=== PATIENT | male | born 1955 | race Caucasian/White ===

== ENCOUNTER 2017-05-16 09:14 | Inpatient (IN) | payer OTHER ==
[~2017-05-16] VITALS: Ht 180.3 cm; Wt 83.3 kg
[2017-05-16] MEDS ORDERED: PROPOFOL 1000 MG/ISO-OSM 100 ML IV ONE (09:18)
[2017-05-16] MEDS ORDERED: LEVO75 PO (09:28)
[2017-05-16] MEDS ORDERED: SODIUM CHLORIDE 0.9% 1,000 ML IV ONE (09:30)
[2017-05-16 09:39] LABS: BASOPHILS # (AUTO) 0.02 K/uL (0.00-0.20); BASOPHILS % (AUTO) 0.2 % (0.0-2.0); EOSINOPHILS # (AUTO) 0.01 K/uL (0.00-0.70); EOSINOPHILS % (AUTO) 0.08 % (1.0-6.0); HEMATOCRIT 47.9 % (41-53); HEMOGLOBIN 15.1 g/dL (13.5-17.5); LYMPHOCYTES % (AUTO) 22.5 % (22.0-44.0); MEAN CORPUSCULAR HEMOGLOBIN 30.2 pg (26.0-34.0); MEAN CORPUSCULAR HGB CONC 31.5 G/dL (31.0-37.0); MEAN CORPUSCULAR VOLUME 96 fL (80-100); MONOCYTES # (AUTO) 0.3 K/uL (0.1-1.0); MONOCYTES % (AUTO) 3.3 % (2.0-9.0); NEUTROPHILS # (AUTO) 6.5 K/uL (1.8-7.7); NEUTROPHILS % (AUTO) 73.9 % (40.0-70.0); PLATELET COUNT (AUTO) 342 K/uL (150-450); RED BLOOD CELL COUNT(AUTO) 5.01 MIL/uL (4.50-5.90); WHITE BLOOD COUNT (AUTO) 8.9 K/uL (4.5-11.0)
[2017-05-16 09:48] LABS: ANION GAP 13 mmol/L (8-16); CALCIUM, TOTAL 9.1 mg/dL (8.8-10.5); CARBON DIOXIDE 28 mmol/L (22-29); CHLORIDE 101 mmol/L (98-107); CREATININE 0.88 mg/dL (0.60-1.30); GLOMERULAR FILTR. RATE CALC > 60 mL/min (>60); POTASSIUM 4.2 mmol/L (3.5-5.1); SODIUM SERUM 142 mmol/L (136-145); UREA NITROGEN, BLOOD 19 mg/dL (7-18)
[2017-05-16] MEDS: PROPOFOL 1000 MG/ISO-OSM 100 ML IV PRN (09:58)
[2017-05-16] MEDS ORDERED: PHENYLEPHRINE 200 MG/D5%-WATER 250 ML IV PRN (09:58)
[2017-05-16 10:04] LABS: ALANINE AMINOTRANSFERASE 464 U/L (12-78); ALBUMIN 2.1 g/dL (3.4-5.0); ASPARTATE AMINOTRANSFERASE 645 U/L (15-37); BILIRUBIN,TOTAL 1.1 mg/dL (0.1-1.0); TOTAL PROTEIN, SERUM 8.4 g/dL (6.4-8.2)
[2017-05-16 10:07] LABS: B-TYPE NATRIURETIC PEPTIDE 245 pg/mL (0-100)
[2017-05-16 10:27] LABS: CREATINE KINASE, TOTAL 8843 U/L (39-308)
[2017-05-16] MEDS ORDERED: BENZ-51 PO (10:27)
[2017-05-16] MEDS ORDERED: SENN-175 PO (10:27)
[2017-05-16] MEDS ORDERED: ASPI81 PO (10:27)
[2017-05-16] MEDS ORDERED: ACET-784 PO (10:27)
[2017-05-16 10:29] LABS: ABG BASE EXCESS -2.1 mmol/L (-2.0-3.0); ABG HCO3 22.6 mmol/L (22.0-26.0); ABG OXYHEMOGLOBIN 96.7 % (94.0-100.0); ABG PCO2 47 mmHg (35-45); ABG PH 7.327 (7.35-7.450); ALLEN TEST, BLOOD GAS Positive
[2017-05-16] MEDS ORDERED: 0.9% SODIUM CHLORIDE 10 ML SYRINGE IVP PRN (11:15)
[2017-05-16] MEDS ORDERED: ACETAMINOPHEN 325 MG TABLET PO PRN (11:15)
[2017-05-16 11:29] LABS: LACTIC ACID 5.3 mmol/L (0.4-2.0)
[2017-05-16 11:37] LABS: CREATINE KINASE MB 827.6 ng/mL (0-5)
[2017-05-16] MEDS ORDERED: AZITHROMYCIN 500 MG/NS 250 ML IV ONE (11:45)
[2017-05-16] MEDS ORDERED: CefTRIAXone 1 GM/DEXTROSE 50 ML IV ONE (11:45)
[2017-05-16] MEDS ORDERED: SODIUM CHLORIDE 0.9% 2,000 ML IV ONE (11:45)
[2017-05-16 12:51] LABS: REFLEX LACTIC ACID? YES YES
[2017-05-16] MEDS: DEXTROSE 5%-0.45% SODIUM CHL 1,000 ML IV SCH (15:11)
[2017-05-16] MEDS ORDERED: ACETAMINOPHEN 1000 MG/ISO-OSM 100 ML IV ONE (16:15)
[2017-05-16 16:45] LABS: APPEARANCE,URINE TURBID (CLEAR); GLUCOSE, URINE (UA) 100 mg/dL (NEGATIVE); KETONES,URINE TRACE mg/dL (NEGATIVE); LEUKOCYTE ESTERASE ,URINE SMALL (NEGATIVE); OCCULT BLOOD,URINE LARGE (NEGATIVE); PH,URINE 5.5 (5.0-8.0); PROTEIN,URINE SEE CONFIRM (NEGATIVE)
[2017-05-16 16:54] LABS: ADD UA MICROSCOPIC YES
[2017-05-16 16:55] LABS: SULFOSALICYLIC ACID,URINE 3+ (Negative)
[2017-05-16 16:59] LABS: HYALINE CASTS, URINE 0-2 /LPF (None Seen); SQUAMOUS EPITHELIAL CELL,UR Few /LPF (None Seen)
[2017-05-16 17:00] LABS: URINALYSIS COMMENT Moderate Sperm seen.
[2017-05-16] MEDS ORDERED: SODIUM CHLORIDE 0.9% 250 ML IV ONE (19:30)
[2017-05-16 19:32] LABS: INR 1.1 (0.9-1.1); PROTHROMBIN TIME 11.2 SEC (9.4-11.6)
[2017-05-16 20:40] VITALS: BP 122/90
[2017-05-16 22:30] LABS: ALANINE AMINOTRANSFERASE 389 U/L (12-78); ANION GAP 10 mmol/L (8-16); ASPARTATE AMINOTRANSFERASE 423 U/L (15-37); BILIRUBIN,TOTAL 0.8 mg/dL (0.1-1.0); CALCIUM, TOTAL 8.1 mg/dL (8.8-10.5); CARBON DIOXIDE 27 mmol/L (22-29); CHLORIDE 104 mmol/L (98-107); CREATININE 1.14 mg/dL (0.60-1.30); GLOMERULAR FILTR. RATE CALC > 60 mL/min (>60); SODIUM SERUM 141 mmol/L (136-145); TOTAL PROTEIN, SERUM 7.4 g/dL (6.4-8.2); UREA NITROGEN, BLOOD 28 mg/dL (7-18)
[2017-05-16] MEDS ORDERED: INFLUENZA VIRUS VACCINE QVS 2017-18 (3YR+)/PF 60 MCG/0.5 ML SYRINGE IM ONE (22:45)
[2017-05-16 22:47] LABS: ALLEN TEST, BLOOD GAS POSITIVE; TEMPERATURE, FAHRENHEIT, BG 95.7 FAHREN (96.0-98.6)
[2017-05-16 22:48] LABS: ABG BASE EXCESS -1.6 mmol/L (-2.0-3.0); ABG HCO3 22.9 mmol/L (22.0-26.0); ABG OXYHEMOGLOBIN 99.2 % (94.0-100.0); ABG PCO2 44 mmHg (35-45)
[2017-05-16 22:49] LABS: ABG A-A DIFF O2 323.1 mmHg (10-20.0)
[2017-05-16 23:15] LABS: ALBUMIN 1.8 g/dL (3.4-5.0)
[2017-05-17] VITALS (23 sets, daily range): BP systolic 49–223; BP diastolic 30–174
[2017-05-17] MEDS: PROPOFOL 1000 MG/ISO-OSM 100 ML IV PRN ×2 (04:26→19:43)
[2017-05-17] MEDS: DEXTROSE 5%-0.45% SODIUM CHL 1,000 ML IV SCH ×2 (04:27→19:45)
[2017-05-17 04:32] LABS: ABG PCO2 44 mmHg (35-45); ABG PH 7.378 (7.35-7.450); TEMPERATURE, FAHRENHEIT, BG 90.5 FAHREN (96.0-98.6)
[2017-05-17 04:33] LABS: ABG A-A DIFF O2 153.3 mmHg (10-20.0); ABG BASE EXCESS -0.3 mmol/L (-2.0-3.0); ABG HCO3 24.3 mmol/L (22.0-26.0); ABG OXYHEMOGLOBIN 95.3 % (94.0-100.0)
[2017-05-17 05:30] LABS: BASOPHILS # (AUTO) 0.01 K/uL (0.00-0.20); BASOPHILS % (AUTO) 0.1 % (0.0-2.0); EOSINOPHILS % (AUTO) 0.06 % (1.0-6.0); HEMATOCRIT 38.2 % (41-53); HEMOGLOBIN 12.4 g/dL (13.5-17.5); LYMPHOCYTES # (AUTO) 0.7 K/uL (1.0-4.8); LYMPHOCYTES % (AUTO) 9.3 % (22.0-44.0); MEAN CORPUSCULAR HEMOGLOBIN 30.4 pg (26.0-34.0); MEAN CORPUSCULAR HGB CONC 32.4 G/dL (31.0-37.0); MEAN CORPUSCULAR VOLUME 94 fL (80-100); MONOCYTES # (AUTO) 0.3 K/uL (0.1-1.0); MONOCYTES % (AUTO) 3.7 % (2.0-9.0); NEUTROPHILS # (AUTO) 6.3 K/uL (1.8-7.7); PLATELET COUNT (AUTO) 298 K/uL (150-450); RED BLOOD CELL COUNT(AUTO) 4.07 MIL/uL (4.50-5.90); RED CELL DISTRIBUTION WIDTH 14.5 % (11.5-14.5); WHITE BLOOD COUNT (AUTO) 7.3 K/uL (4.5-11.0)
[2017-05-17 05:34] LABS: NEUTROPHILS % (AUTO) 86.8 % (40.0-70.0)
[2017-05-17 05:54] LABS: ALBUMIN 1.6 g/dL (3.4-5.0); BILIRUBIN,TOTAL 0.8 mg/dL (0.1-1.0); CALCIUM, TOTAL 7.7 mg/dL (8.8-10.5); CREATININE 1.23 mg/dL (0.60-1.30); MAGNESIUM 1.7 mg/dL (1.80-2.40); PHOSPHORUS 4.3 mg/dL (2.5-4.9); POTASSIUM 3.7 mmol/L (3.5-5.1); THYROID STIMULATING HORMONE 69.7 uIU/mL (0.36-3.74); TOTAL PROTEIN, SERUM 6.1 g/dL (6.4-8.2)
[2017-05-17] MEDS ORDERED: FUROSEMIDE 20 MG/2 ML VIAL IVP ONE (08:30)
[2017-05-17 10:28] LABS: ALBUMIN 1.6 g/dL (3.4-5.0); BILIRUBIN,TOTAL 0.7 mg/dL (0.1-1.0); CALCIUM, TOTAL 7.6 mg/dL (8.8-10.5); CREATININE 1.27 mg/dL (0.60-1.30); MAGNESIUM 1.8 mg/dL (1.80-2.40); POTASSIUM 3.5 mmol/L (3.5-5.1)
[2017-05-17] MEDS: LEVOTHYROXINE SODIUM 75 MCG TABLET PO SCH (10:38)
[2017-05-17 13:23] LABS: BASOPHILS % (AUTO) 0.4 % (0.0-2.0); EOSINOPHILS % (AUTO) 0.3 % (1.0-6.0); HEMATOCRIT 39.3 % (41-53); HEMOGLOBIN 12.9 g/dL (13.5-17.5); LYMPHOCYTES # (AUTO) 3.2 K/uL (1.0-4.8); MEAN CORPUSCULAR HEMOGLOBIN 30.5 pg (26.0-34.0); MEAN CORPUSCULAR HGB CONC 32.7 G/dL (31.0-37.0); MEAN CORPUSCULAR VOLUME 93 fL (80-100); MONOCYTES # (AUTO) 0.6 K/uL (0.1-1.0); MONOCYTES % (AUTO) 4.7 % (2.0-9.0); NEUTROPHILS # (AUTO) 7.9 K/uL (1.8-7.7); NEUTROPHILS % (AUTO) 67.6 % (40.0-70.0); PLATELET COUNT (AUTO) 377 K/uL (150-450); RED BLOOD CELL COUNT(AUTO) 4.21 MIL/uL (4.50-5.90); RED CELL DISTRIBUTION WIDTH 14.7 % (11.5-14.5); WHITE BLOOD COUNT (AUTO) 11.7 K/uL (4.5-11.0)
[2017-05-17 13:33] LABS: ANION GAP 9 mmol/L (8-16); CALCIUM, TOTAL 7.7 mg/dL (8.8-10.5); CARBON DIOXIDE 29 mmol/L (22-29); CHLORIDE 105 mmol/L (98-107); CREATININE 1.38 mg/dL (0.60-1.30); GLOMERULAR FILTR. RATE CALC 52 mL/min (>60); POTASSIUM 3.6 mmol/L (3.5-5.1); SODIUM SERUM 143 mmol/L (136-145); UREA NITROGEN, BLOOD 36 mg/dL (7-18)
[2017-05-17 13:33] LABS: ABG A-A DIFF O2 567.9 mmHg (10-20.0); ABG BASE EXCESS -3.2 mmol/L (-2.0-3.0); ABG HCO3 20.6 mmol/L (22.0-26.0); ABG OXYHEMOGLOBIN 95.8 % (94.0-100.0); ABG PCO2 61 mmHg (35-45); ABG PH 7.216 (7.35-7.450); TEMPERATURE, FAHRENHEIT, BG 93.4 FAHREN (96.0-98.6)
[2017-05-17 13:37] LABS: ALANINE AMINOTRANSFERASE 341 U/L (12-78); ALBUMIN 1.6 g/dL (3.4-5.0); ASPARTATE AMINOTRANSFERASE 397 U/L (15-37); BILIRUBIN,TOTAL 0.7 mg/dL (0.1-1.0); PHOSPHORUS 4.4 mg/dL (2.5-4.9); TOTAL PROTEIN, SERUM 6.3 g/dL (6.4-8.2)
[2017-05-17 14:12] LABS: LACTIC ACID 3.3 mmol/L (0.4-2.0)
[2017-05-17 15:13] LABS: TEMPERATURE, FAHRENHEIT, BG 92.4 FAHREN (96.0-98.6)
[2017-05-17 15:14] LABS: ABG BASE EXCESS -5.6 mmol/L (-2.0-3.0); ABG HCO3 19.6 mmol/L (22.0-26.0); ABG OXYHEMOGLOBIN 98.4 % (94.0-100.0); ABG PCO2 47 mmHg (35-45)
[2017-05-17 15:20] LABS: REFLEX LACTIC ACID? YES YES
[2017-05-17] MEDS ORDERED: SODIUM CHLORIDE 0.9% 250 ML IV ONE (15:40)
[2017-05-17] MEDS: PIPERACILLIN/TAZO 3.375 GM/D5W 50 ML IV SCH ×2 (15:44→19:49)
[2017-05-17 16:43] LABS: BILIRUBIN,TOTAL 0.8 mg/dL (0.1-1.0); CALCIUM, TOTAL 8.1 mg/dL (8.8-10.5); CREATININE 1.39 mg/dL (0.60-1.30); PHOSPHORUS 5.3 mg/dL (2.5-4.9); TOTAL PROTEIN, SERUM 7.5 g/dL (6.4-8.2)
[2017-05-17 17:36] LABS: ALBUMIN 1.8 g/dL (3.4-5.0)
[2017-05-17] MEDS ORDERED: DOPamine HCL 400 MG/D5%-WATER 250 ML IV ONE (19:02)
[2017-05-17] MEDS ORDERED: DOPamine HCL 400 MG/D5%-WATER 250 ML IV PRN (20:03)
[2017-05-17 22:21] LABS: ABG PH 7.367 (7.35-7.450); ALLEN TEST, BLOOD GAS Positive; TEMPERATURE, FAHRENHEIT, BG 97.5 FAHREN (96.0-98.6)
[2017-05-17 22:22] LABS: ABG BASE EXCESS 0.4 mmol/L (-2.0-3.0); ABG HCO3 24.5 mmol/L (22.0-26.0); ABG PCO2 46 mmHg (35-45)
[2017-05-17 22:45] LABS: ALBUMIN 1.7 g/dL (3.4-5.0); BILIRUBIN,TOTAL 0.6 mg/dL (0.1-1.0); CREATININE 1.41 mg/dL (0.60-1.30); MAGNESIUM 1.8 mg/dL (1.80-2.40); PHOSPHORUS 5.5 mg/dL (2.5-4.9); POTASSIUM 4.4 mmol/L (3.5-5.1); TOTAL PROTEIN, SERUM 7.1 g/dL (6.4-8.2)
[2017-05-18] VITALS (7 sets, daily range): BP systolic 68–121; BP diastolic 48–77
[2017-05-18] MEDS: PIPERACILLIN/TAZO 3.375 GM/D5W 50 ML IV SCH ×4 (00:10→18:47)
[2017-05-18] MEDS: PROPOFOL 1000 MG/ISO-OSM 100 ML IV PRN ×4 (03:35→21:43)
[2017-05-18] MEDS: LEVOTHYROXINE SODIUM 75 MCG TABLET PO SCH (06:17)
[2017-05-18 06:24] LABS: PROTHROMBIN TIME 10.6 SEC (9.4-11.6)
[2017-05-18 06:42] LABS: EOSINOPHILS % (AUTO) 0.1 % (1.0-6.0); HEMATOCRIT 37.9 % (41-53); HEMOGLOBIN 12.3 g/dL (13.5-17.5); LYMPHOCYTES # (AUTO) 0.7 K/uL (1.0-4.8); LYMPHOCYTES % (AUTO) 7.9 % (22.0-44.0); MEAN CORPUSCULAR HEMOGLOBIN 30.4 pg (26.0-34.0); MEAN CORPUSCULAR HGB CONC 32.6 G/dL (31.0-37.0); MEAN CORPUSCULAR VOLUME 93 fL (80-100); MONOCYTES # (AUTO) 0.5 K/uL (0.1-1.0); MONOCYTES % (AUTO) 5.5 % (2.0-9.0); NEUTROPHILS # (AUTO) 8.1 K/uL (1.8-7.7); PLATELET COUNT (AUTO) 355 K/uL (150-450); RED BLOOD CELL COUNT(AUTO) 4.06 MIL/uL (4.50-5.90); RED CELL DISTRIBUTION WIDTH 14.7 % (11.5-14.5); WHITE BLOOD COUNT (AUTO) 9.4 K/uL (4.5-11.0)
[2017-05-18 06:43] LABS: NEUTROPHILS % (AUTO) 86.5 % (40.0-70.0)
[2017-05-18 06:44] LABS: ALBUMIN 1.6 g/dL (3.4-5.0); BILIRUBIN,TOTAL 0.6 mg/dL (0.1-1.0); CALCIUM, TOTAL 7.6 mg/dL (8.8-10.5); CREATININE 1.49 mg/dL (0.60-1.30); MAGNESIUM 1.6 mg/dL (1.80-2.40); PHOSPHORUS 4.5 mg/dL (2.5-4.9); POTASSIUM 3.7 mmol/L (3.5-5.1); TOTAL PROTEIN, SERUM 6.5 g/dL (6.4-8.2)
[2017-05-18] MEDS: DEXTROSE 5%-0.45% SODIUM CHL 1,000 ML IV SCH (07:58)
[2017-05-18 08:09] LABS: LACTIC ACID 2.2 mmol/L (0.4-2.0)
[2017-05-18 08:42] LABS: CREATINE KINASE MB 733.3 ng/mL (0-5)
[2017-05-18] MEDS ORDERED: PANTOPRAZOLE SODIUM 40 MG/VIAL IVP SCH (09:00)
[2017-05-18 09:44] LABS: REFLEX LACTIC ACID? YES YES
[2017-05-18] MEDS: ACETAMINOPHEN 650 MG/20.3 ML SOLUTION UDCUP NG PRN ×2 (10:45→15:16)
[2017-05-18 10:52] LABS: ABG A-A DIFF O2 577.2 mmHg (10-20.0); ABG BASE EXCESS -1.4 mmol/L (-2.0-3.0); ABG HCO3 23.9 mmol/L (22.0-26.0); ABG OXYHEMOGLOBIN 97.4 % (94.0-100.0); ABG PCO2 34 mmHg (35-45); ABG PH 7.447 (7.35-7.450); TEMPERATURE, FAHRENHEIT, BG 99.4 FAHREN (96.0-98.6)
[2017-05-18 10:53] LABS: ALLEN TEST, BLOOD GAS Positive
[2017-05-18] MEDS ORDERED: LIDOCAINE HCL/PF 2% 5 ML SYRINGE IVP ONE (17:30)
[2017-05-18] MEDS ORDERED: EPINEPHrine 1:10,000 [1 MG/10 ML] SYRINGE IVP ONE (17:30)
[2017-05-18] MEDS ORDERED: SODIUM BICARBONATE [ADULT] 8.4% 50 MEQ/50 ML SYRINGE IVP ONE (17:30)
[2017-05-18] MEDS ORDERED: DOPamine HCL/D5W 400 MG/250 ML IV BAG IV ONE (17:30)
[2017-05-18] MEDS ORDERED: LevETIRAcetam 250 MG in DEXTROSE 5%-WATER 100 ML IV SCH (18:00)
[2017-05-18] MEDS ORDERED: MORPHINE SULFATE 100 MG/NS/PF 100 ML IV PRN (20:24)
[2017-06-14 16:14] LABS: ESTERIFIED/FREE CARNITN RATIO 0.8 Ratio (0.0-0.9)
== END 2017-05-19 03:32 | disposition expired | DRG 208 ==
LOC: EMS 09:15 → ICU 18:04 → UNDOADMIN 18:25
PROVIDERS: ADMIT Hospitalist; ATTEND Hospitalist
PROC: 5A1935Z Respiratory Ventilation, Less than 24 Consecutive Hours (ICD-10-PCS; principal; 2017-05-16)
PROC: 5A12012 Performance of Cardiac Output, Single, Manual (ICD-10-PCS; 2017-05-16)
PROC: 5A09357 Assistance with Respiratory Ventilation, Less than 24 Consecutive Hours, Continuous Positive Airway Pressure (ICD-10-PCS; 2017-05-16)
PROC: 0BH17EZ Insertion of Endotracheal Airway into Trachea, Via Natural or Artificial Opening (ICD-10-PCS; 2017-05-16)
PROC: 5A1945Z Respiratory Ventilation, 24-96 Consecutive Hours (ICD-10-PCS; 2017-05-17)
DX: J96.00 Acute respiratory failure, unspecified whether with hypoxia or hypercapnia (principal); I46.9 Cardiac arrest, cause unspecified; G93.40 Encephalopathy, unspecified; T68.XXXA Hypothermia, initial encounter; N17.9 Acute kidney failure, unspecified; J18.9 Pneumonia, unspecified organism; M62.82 Rhabdomyolysis; I47.2 Ventricular tachycardia; G25.3 Myoclonus; Z66 Do not resuscitate; E03.9 Hypothyroidism, unspecified; I25.2 Old myocardial infarction; Z82.49 Family history of ischemic heart disease and other diseases of the circulatory system; Z87.891 Personal history of nicotine dependence
CPT/HCPCS: 36556; 70450; 71250; 72192; 74150; 82379; 82805; 83605; 83735; 84100; 84145; 84443; 87040; 87070; 87081; 87086; 87205; 92950; 93005; 93306; 93308; 93970; 94002; 94003; 96361; 96365; 96367; 99291; C9113; J0131; J0171; J0456; J0696; J0712; J1265; J1940; J2270; J2370; J2543; J2704; J3490; J7030; J7050; J7060